=== PATIENT | female | born 2000 | race Caucasian/White ===

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

== ENCOUNTER 2025-04-18 12:52 | Emergency (ER) | payer OTHER ==
[~2025-04-18] VITALS: Ht 160 cm; Wt 61.2 kg
[~2025-04-18 12:52] MED LIST: IBUPROFEN600 MG PO; TESSALON PERLE100 M1 PO
[2025-04-18] MEDS ORDERED: traMADol Hydrochloride 50 MG TAB PO ONE (13:35)
== END 2025-04-18 14:37 | disposition home or self-care (01) ==
LOC: ED 12:52
DX: S01.01XA Laceration without foreign body of scalp, initial encounter (principal); Z79.899 Other long term (current) drug therapy; Z88.0 Allergy status to penicillin; W22.8XXA Striking against or struck by other objects, initial encounter; Y93.89 Activity, other specified; Y92.89 Other specified places as the place of occurrence of the external cause; Y99.0 Civilian activity done for income or pay

== ENCOUNTER 2025-04-25 17:21 | Emergency (ER) | payer OTHER ==
[~2025-04-25] VITALS: Ht 160 cm; Wt 61.2 kg
== END 2025-04-25 19:29 | disposition home or self-care (01) ==
LOC: ED 17:21
DX: S01.01XD Laceration without foreign body of scalp, subsequent encounter (principal); Z88.0 Allergy status to penicillin; Z48.02 Encounter for removal of sutures; W22.8XXD Striking against or struck by other objects, subsequent encounter